=== PATIENT | male | born 1995 | race Caucasian/White ===

== ENCOUNTER 2020-08-05 07:43 | Outpatient (CLI) | payer OTHER, SELFPAY | END 2020-08-05 07:44 | disposition home or self-care (01) | PROVIDERS: PCP Family Medicine; Visit Provider Family Medicine | DX: Z01.10 Encounter for examination of ears and hearing without abnormal findings (principal) | CPT/HCPCS: 92552; 92556; 92567 ==

== ENCOUNTER 2021-08-08 08:47 | Outpatient (CLI) | payer OTHER, SELFPAY | END 2021-08-08 08:48 | disposition home or self-care (01) | LOC: ANHAUDIO 08:48 | PROVIDERS: PCP Family Medicine; Visit Provider Family Medicine | DX: Z01.10 Encounter for examination of ears and hearing without abnormal findings (principal) | CPT/HCPCS: 92552; 92556; 92567 ==

== ENCOUNTER 2022-08-17 09:40 | Outpatient (CLI) | payer MEDICARE, MEDICAID, SELFPAY | END 2022-08-17 09:41 | disposition home or self-care (01) | LOC: ANHAUDIO 09:42 | PROVIDERS: PCP Family Medicine; Visit Provider Family Medicine | DX: Z01.10 Encounter for examination of ears and hearing without abnormal findings (principal) | CPT/HCPCS: 99199 ==

== ENCOUNTER 2022-09-12 10:01 | Outpatient (CLI) | payer MEDICARE, MEDICAID, SELFPAY | END 2022-09-12 10:02 | disposition home or self-care (01) | LOC: ANHAUDIO 10:02 | PROVIDERS: PCP Family Medicine; Visit Provider Family Medicine | DX: Z01.10 Encounter for examination of ears and hearing without abnormal findings (principal) | CPT/HCPCS: 92552; 92556; 92567 ==

== ENCOUNTER 2023-09-13 08:29 | Outpatient (CLI) | payer MEDICARE, MEDICAID, SELFPAY | END 2023-09-13 08:30 | disposition home or self-care (01) | LOC: ANHAUDIO 08:30 | PROVIDERS: PCP Family Medicine; Visit Provider Family Medicine | DX: Z01.10 Encounter for examination of ears and hearing without abnormal findings (principal) | CPT/HCPCS: 92552; 92556; 92567 ==

== ENCOUNTER 2024-09-16 08:52 | Outpatient (CLI) | payer MEDICARE, MEDICAID, SELFPAY ==
--- OUTSIDE RECORDS SUMMARY | 2024-09-16 09:15 | XMS_ITS ---
Author Organization Unknown Address [address] [place] [address] [phone] Phone Care Team Providers Care Silk Soaker Name Role Phone AUDELIA Frey Attending Unavailable Immunization Immunization Date Status Additional Notes Code Code System OPV 1997 Completed 02 CVX OPV 1997 Completed 02 CVX OPV 06/29/1998 Completed 02 CVX OPV 07/04/2001 Completed 02 CVX MMR 06/29/1998 Completed 03 CVX MMR 02/27/2001 Completed 03 CVX Hep B, adolescent or pediatric 1997 Completed 08 CVX Hep B, adolescent or pediatric 1997 Completed 08 CVX Hep B, adolescent or pediatric 01/11/1998 Completed 08 CVX Hib, unspecified formulation 1997 Completed 17 CVX Hib, unspecified formulation 01/11/1998 Completed 17 CVX Hib, unspecified formulation 06/29/1998 Completed 17 CVX DTaP 1997 Completed 20 CVX DTaP 1997 Completed 20 CVX DTaP 01/11/1998 Completed 20 CVX DTaP 10/04/1998 Completed 20 CVX DTaP 07/04/2001 Completed 20 CVX varicella 06/29/1998 Completed 21 CVX varicella 08/19/2006 Completed 21 CVX Hep A, pediatric, unspecifie d formulation 07/06/1999 Completed 31 CVX Hep A, pediatric, unspecifie d formulation 02/27/2001 Completed 31 CVX meningococcal MCV4P 02/09/2009 Completed 114 CVX meningococcal MCV4P 10/29/2014 Completed 114 CVX Tdap 02/09/2009 Completed 115 CVX Tdap 09/28/2011 Completed 115 CVX Influenza, split virus, trivalent, PF 04/11/2012 Completed 140 CVX Influenza, split virus, trivalent, preservative 02/20/2024 Completed 141 CVX Influenza, split virus, quadrivalent, preservative 02/21/2017 Completed 158 C VX Influenza, split virus, quadrivalent, preservative 02/27/2018 Completed 158 C VX Influenza, split virus, quadrivalent, preservative 02/26/2019 Completed 158 C VX Influenza, split virus, quadrivalent, preservative 02/23/2021 Completed 158 C VX Influenza, split virus, quadrivalent, preservative 02/15/2022 Completed 158 C VX Influenza, split virus, quadrivalent, preservative 02/14/2023 Completed 158 C VX COVID-19, mRNA, LNP-S, PF, 3 0 mcg/0.3 mL dose 07/01/2020 Completed 208 CVX COVID-19, mRNA, LNP-S, PF, 3 0 mcg/0.3 mL dose 07/22/2020 Completed 208 CVX COVID-19, mRNA, LNP-S, PF, 3 0 mcg/0.3 mL dose 06/22/2021 Completed 208 CVX COVID-19, mRNA, LNP-S, bivalent, PF, 30 mcg/0.3 mL dose 08/01/2022 Completed 300 CVX COVID-19, mRNA, LNP-S, PF, tania-sucrose, 30 mcg/0.3 mL 08/06/2023 Completed 309 CVX Results HIV 4th GEN Ab 1&2 p24 Ag in -house - Collect Date/Time: 09/25/2023 07:07 [facility] ID: [id number] [place] [address], [phone] LOINC: 58221-9 Test Value Unit Reference Range Code Code System Flag HIV-1 Ab NEGATIVE NORMAL: NON REACTIVE/NE HIV-2 Ab NEGATIVE HIV-p24 Ag NEGATIVE SEND TO IF? NO REFLEX? NO 5778-6 LOINC HEPATITIS C AB (HCV Ab) - Co llect Date/Time: 09/25/2023 07:07 [facility] ID: [id number] [place] [address], [phone] LOINC: 51611-7 Test Value Unit Reference Range Code Code System Flag Hep C Virus Ab Non Reactive Non Reactive 39478-9 LOINC SEND TO [facility]? NO Social History Type Status Start Date End Date Code Code Syst em Smoking History Never smoker (Never Smoked) [id number] SNOMED CT Sex Male Hospital Discharge Instructions Should you have any questions prior to discharge, please contact a member of your healthcare team. If you have left the hospital and have any questions, please contact your primary care physician. Reason For Referral No Data Found Plan of Treatment No Data Found Encounters Encounter Diagnosis Start Date Code Code Sys tem Encounter for screening for human immunodeficiency virus [HIV] 09/25/2023 SNOMED-CT Personal Care Team Section Performer Name Performer Role Active Date Inactive Da te
--- OUTSIDE RECORDS SUMMARY | 2024-09-16 09:15 | XMS_ITS ---
Author Organization Unknown Address [address] [place] [address] [phone] Phone Care Team Providers Care Metal Tank Builder Name Role Phone AUDELIA Frey Attending Unavailable [...] mcg/0.3 mL 08/06/2023 Completed 309 CVX Results CBC W/O DIFF - Collect Date/ Time: 08/28/2023 07:24 [facility] ID: [id number] [address] [place], [place], [phone] LOINC: 65899-7 Test Value Unit Reference Range Code Code System Flag WBC 5.8 10^3uL L=4.8 H=10.8 RBC 5.86 10^6uL L=4.60 H=6.20 HEMOGLOBIN 16.2 g/dL L=14.0 H=18.0 718-7 LOINC HEMATOCRIT 46.1 VOL% L=42.0 H=52.0 4544-3 LOINC MCV 78.7 fL L=80.0 H=94.0 L MCH 27.6 pg L=27.0 H=32.0 MCHC 35.1 g/dL L=32.0 H=36.0 PLATELETS 238 10^3uL L=100 H=400 92667-7 LOINC RDW 12.8 % L=11.7 H=15.5 COMPREHENSIVE METABOLIC PANE L - Collect Date/Time: 08/28/2023 07:24 [facility] ID: [id number] [address] [place], [place], [phone] LOINC: 25663-9 Test Value Unit Reference Range Code Code System Flag FASTING YES BUN 15 mg/dL L=7 H=20 3094-0 LOINC CREATININE 1.10 mg/dL L=0.66 H=1.25 2160-0 LOINC GLUCOSE 102 mg/dL L=74 H=106 2345-7 LOINC SODIUM 139 mmol/L L=132 H=144 2951-2 LOINC POTASSIUM 4.2 mmol/L L=3.5 H=5.1 2823-3 LOINC CHLORIDE 101 mmol/L L=98 H=107 2075-0 LOINC CO2 31.0 mmol/L L=22.0 H=30.0 2028-9 LOINC H ANION GAP 11 L=10 H=20 29835-1 LOINC OSMOLALITY 289 mOs/kG L=280 H=296 83401-1 LOINC BUN/CREAT 13.6 3097-3 LOINC CALCIUM 9.5 mg/dL L=8.3 H=10.5 95951-1 LOINC AST 37 U/L L=15 H=46 1920-8 LOINC ALT 30 U/L L=9 H=72 1742-6 LOINC ALKALINE PHOS 64 U/L L=38 H=126 6768-6 LOINC TOTAL BILI 0.5 mg/dL L=0.2 H=1.3 1975-2 LOINC ALBUMIN 4.7 G/dL L=3.5 H=5.0 1751-7 LOINC TOTAL PROTEIN 7.6 g/L L=6.3 H=8.2 2885-2 LOINC A/G RATIO 1.6 21235-4 LOINC AGE 28 24211-6 LOINC eGFR NON-AFR 86 ml/min eGFR AFR AMER 104 ml/min TSH - Collect Date/Time: 07:24 [facility] ID: [id number] [address] [place] [address], [id number] LOINC: 60200-1 Test Value Unit Reference Range Code Code System Flag TSH. 0.595 uIU/L L=0.470 H=4.680 40288-7 LOINC LIPID PANEL - Collect Date/T sapphire: 08/28/2023 07:24 [facility] ID: [id number] [address] [place] [address], [id number] LOINC: 89554-9 Test Value Unit Reference Range Code Code System Flag FASTING YES CHOLESTEROL 158 mg/dL L=0 H=200 2093-3 LOINC TRIGLYCERIDE 186 mg/dL L=0 H=150 2571-8 LOINC H HDL 55 mg/dL L=40 H=60 2085-9 LOINC LDL 75 mg/dL 9-1 LOINC HGB A1C -GLYCOHEMOGLOBIN - C ollect Date/Time: 08/28/2023 07:24 [facility] ID: [id number] [address] [place] [address], [id number] LOINC: 4548-4 Test Value Unit Reference Range Code Code System Flag HGBA1C 5.0 % 4548-4 LOINC Social History Type Status Start Date End Date Code Code Syst em Smoking History Never smoker (Never Smoked) [id number] SNOMED CT Sex Male Hospital Discharge Instructions Should you have any questions prior to discharge, please contact a member of your healthcare team. If you have left the hospital and have any questions, please contact your primary care physician. Reason For Referral No Data Found Plan of Treatment No Data Found Encounters Encounter Diagnosis Start Date Code Code Sys tem Pervasive developmental disorder, unspecified 08/28/19 24 SNOMED-CT Personal Care Team Section Performer Name Performer Role Active Date Inactive Da te
--- OUTSIDE RECORDS SUMMARY | 2024-09-16 09:16 | XMS_ITS | Patient Health Record ---
Author Organization [facility] Address [address] [place] [address] Care Team Providers Care Patient Observation Assistant Name Role Phone Looker, Miya Beard Primary Care Provider Reason For Referral No Information Medications Medication SIG (Take, Route, Fr equency, Duration) Notes Start Date End Date Status risperiDONE ER Activ e OXcarbazepine Active Sertraline HCl Activ e Cetirizine HCl Activ e hydrOXYzine HCl Acti ve guanFACINE HCl Activ e Social History Tobacco Use: Social History Observation Description Date Details (start date - stop date) Unknown Tobacco Use/Smoking Question Answer Notes Are you a Uses tobacco in other forms Plan Of Treatment No Information Insurance Providers Payer Name Payer Address Payer Phone Subscriber Number Group Number Insured Name Patient Relationship to Insured Coverage Start Date Coverage End Date [employer]ANE Monte[employer] [address] [place] [phone] [id number] Vinny Parker Self - patient is the insured [facility] [address] [place] [address] [id number] Vinny Parker Self - patient is the insured Medical (General) History Medical History History ICD Code Sickle Cell Trait Behavior Disorder- ADHD,PDP Developmental disability
--- OUTSIDE RECORDS SUMMARY | 2024-09-16 09:16 | XMS_ITS ---
Author Organization Unknown Address [address] [place] [phone] Phone Care Team Providers Care Concrete Batcher Name Role Phone AUDELIA Frey Attending Unavailable [...] mL 08/06/2023 Completed 309 CVX Results CBC W/ DIFF - Collect Date/T sapphire: 09/01/2024 08:03 [facility] ID: [id number] [address] [place], [place], [phone] LOINC: 05161-4 Test Value Unit Reference Range Code Code System Flag WBC 4.6 10^3uL L=4.8 H=10.8 L RBC 5.90 10^6uL L=4.60 H=6.20 HEMOGLOBIN 16.0 g/dL L=14.0 H=18.0 718-7 LOINC HEMATOCRIT 45.7 VOL% L=42.0 H=52.0 4544-3 LOINC MCV 77.5 fL L=80.0 H=94.0 L MCH 27.1 pg L=27.0 H=32.0 MCHC 35.0 g/dL L=32.0 H=36.0 PLATELETS 262 10^3uL L=100 H=400 29527-9 LOINC RDW 13.1 % L=11.7 H=15.5 %GRAN 60.9 % L=40.0 H=70.0 19485-7 LOINC %LYMPH 26.9 % L=20.0 H=45.0 736-9 LOINC %MONO 8.7 % L=2.0 H=10.0 03262-0 LOINC %EOS 2.0 % L=0.0 H=6.0 713-8 LOINC %BASO 1.3 % L=0.0 H=3.0 706-2 LOINC #NEUT 2.8 10^3uL L=1.9 H=7.6 09151-4 LOINC #LYMPH 1.2 10^3uL L=0.9 H=4.9 92656-1 LOINC #MONO 0.4 10^3uL L=0.1 H=0.9 67945-2 LOINC #EOS 0.1 10^3uL L=0.0 H=0.6 712-0 LOINC #BASO 0.06 10^3uL L=0.00 H=0.10 45357-3 LOINC #IM GRANS 0.0 10^3uL L=0.0 H=7.0 06462-5 LOINC %IM GRANS 0.2 % L=0.0 H=5.0 50703-5 LOINC %NRB 0.0 L=0.0 H=0.2 76710-3 LOINC #NRB 0.000 L=0.000 H=0.012 32565-4 LOINC MANUAL DIFF NOT INDICATED RBC MORPH NOT INDICATED COMPREHENSIVE METABOLIC PANE L - Collect Date/Time: 09/01/2024 08:03 [facility] ID: [id number] [address] [place], [place], [phone] LOINC: 02760-6 Test Value Unit Reference Range Code Code System Flag FASTING YES BUN 12 mg/dL L=7 H=20 3094-0 LOINC CREATININE 0.90 mg/dL L=0.66 H=1.25 2160-0 LOINC GLUCOSE 94 mg/dL L=74 H=106 2345-7 LOINC SODIUM 137 mmol/L L=132 H=144 2951-2 LOINC POTASSIUM 4.5 mmol/L L=3.5 H=5.1 2823-3 LOINC CHLORIDE 104 mmol/L L=98 H=107 2075-0 LOINC CO2 25.0 mmol/L L=22.0 H=30.0 2028-9 LOINC ANION GAP 13 L=10 H=20 44826-7 LOINC OSMOLALITY 284 mOs/kG L=280 H=296 20112-7 LOINC BUN/CREAT 13.3 3097-3 LOINC CALCIUM 10.0 mg/dL L=8.3 H=10.5 52118-9 LOINC AST 27 U/L L=15 H=46 1920-8 LOINC ALT 22 U/L L=9 H=72 1742-6 LOINC ALKALINE PHOS 64 U/L L=38 H=126 6768-6 LOINC TOTAL BILI 0.6 mg/dL L=0.2 H=1.3 1975-2 LOINC ALBUMIN 4.7 G/dL L=3.5 H=5.0 1751-7 LOINC TOTAL PROTEIN 7.8 g/L L=6.3 H=8.2 2885-2 LOINC A/G RATIO 1.5 97817-2 LOINC AGE 29 32045-5 LOINC eGFR NON-AFR 108 ml/min eGFR AFR AMER 131 ml/min Social History Type Status Start Date End Date Code Code Syst em Smoking History Never smoker (Never Smoked) [id number] SNOMED CT Sex Male Hospital Discharge Instructions Should you have any questions prior to discharge, please contact a member of your healthcare team. If you have left the hospital and have any questions, please contact your primary care physician. 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
--- OUTSIDE RECORDS SUMMARY | 2024-09-16 09:16 | XMS_ITS ---
Author Organization Unknown Address [address] [place] [phone] Phone Care Team Providers Care Corporate Meeting Planner Name Role Phone AUDELIA Frey Attending Unavailable [...] mcg/0.3 mL 08/06/2023 Completed 309 CVX Results LIPID PANEL - Collect Date/T sapphire: 03/04/2024 06:58 [facility] ID: [id number] [place], [place], [phone] [facility]: 45906-1 Test Value Unit Reference Range Code Code System Flag FASTING YES CHOLESTEROL 153 mg/dL L=0 H=200 3-3 LOINC TRIGLYCERIDE 87 mg/dL L=0 H=150 1-8 LOINC HDL 45 mg/dL L=40 H=60 2084-9 LOINC LDL 71 mg/dL 2088- [facility] COMPREHENSIVE METABOLIC PANE L - Collect Date/Time: 03/04/2024 06:58 [facility] ID: [id number] [place], [place], [phone] LOINC: 25840-8 Test Value Unit Reference Range Code Code System Flag FASTING YES BUN 17 mg/dL L=7 H=20 3094-0 LOINC CREATININE 1.10 mg/dL L=0.66 H=1.25 2160-0 LOINC GLUCOSE 89 mg/dL L=74 H=106 2345-7 LOINC SODIUM 138 mmol/L L=132 H=144 2951-2 LOINC POTASSIUM 4.6 mmol/L L=3.5 H=5.1 2823-3 LOINC CHLORIDE 99 mmol/L L=98 H=107 2075-0 LOINC CO2 31.0 mmol/L L=22.0 H=30.0 2028-9 LOINC H ANION GAP 13 L=10 H=20 50278-6 LOINC OSMOLALITY 287 mOs/kG L=280 H=296 29859-5 LOINC BUN/CREAT 15.5 3097-3 LOINC CALCIUM 9.8 mg/dL L=8.3 H=10.5 76681-3 LOINC AST 26 U/L L=15 H=46 1920-8 LOINC ALT 16 U/L L=9 H=72 1742-6 LOINC ALKALINE PHOS 64 U/L L=38 H=126 6768-6 LOINC TOTAL BILI 0.6 mg/dL L=0.2 H=1.3 1975-2 LOINC ALBUMIN 4.5 G/dL L=3.5 H=5.0 1751-7 LOINC TOTAL PROTEIN 7.0 g/L L=6.3 H=8.2 2885-2 LOINC A/G RATIO 1.8 21570-6 LOINC AGE 28 41813-3 LOINC eGFR NON-AFR 86 ml/min eGFR AFR AMER 104 ml/min TSH - Collect Date/Time: 06:58 [facility] ID: [id number] [place], [place], [phone] LOINC: 11611-0 Test Value Unit Reference Range Code Code System Flag TSH. 0.934 uIU/L L=0.470 H=4.680 45729-2 LOINC HGB A1C -GLYCOHEMOGLOBIN - C ollect Date/Time: 03/04/2024 06:58 [facility] ID: [id number] [address] [place], [place], [phone] LOINC: 4548-4 Test Value Unit Reference Range Code Code System Flag HGBA1C 5.0 % 4548-4 LOINC CBC W/ DIFF - Collect Date/T sapphire: 03/04/2024 06:58 [facility] ID: [id number] [address] [place], [place], [id number] LOINC: 31517-8 Test Value Unit Reference Range Code Code System Flag WBC 5.1 10^3uL L=4.8 H=10.8 RBC 5.79 10^6uL L=4.60 H=6.20 HEMOGLOBIN 16.2 g/dL L=14.0 H=18.0 718-7 LOINC HEMATOCRIT 46.0 VOL% L=42.0 H=52.0 4544-3 LOINC MCV 79.4 fL L=80.0 H=94.0 L MCH 28.0 pg L=27.0 H=32.0 MCHC 35.2 g/dL L=32.0 H=36.0 PLATELETS 231 10^3uL L=100 H=400 17523-9 LOINC RDW 12.9 % L=11.7 H=15.5 %GRAN 61.1 % L=40.0 H=70.0 84866-2 LOINC %LYMPH 24.6 % L=20.0 H=45.0 736-9 LOINC %MONO 9.2 % L=2.0 H=10.0 72564-3 LOINC %EOS 3.7 % L=0.0 H=6.0 713-8 LOINC %BASO 1.2 % L=0.0 H=3.0 706-2 LOINC #NEUT 3.1 10^3uL L=1.9 H=7.6 11756-3 LOINC #LYMPH 1.3 10^3uL L=0.9 H=4.9 40489-0 LOINC #MONO 0.5 10^3uL L=0.1 H=0.9 19536-5 LOINC #EOS 0.2 10^3uL L=0.0 H=0.6 712-0 LOINC #BASO 0.06 10^3uL L=0.00 H=0.10 38918-5 LOINC #IM GRANS 0.0 10^3uL L=0.0 H=7.0 11536-6 LOINC %IM GRANS 0.2 % L=0.0 H=5.0 61209-0 LOINC %NRB 0.0 L=0.0 H=0.2 75983-9 LOINC #NRB 0.000 L=0.000 H=0.012 93583-0 LOINC MANUAL DIFF NOT INDICATED RBC MORPH NOT INDICATED Social History Type Status Start Date End Date Code Code Syst em Smoking History Never smoker (Never Smoked) [id number] SNOMED CT Sex Male Hospital Discharge Instructions Should you have any questions prior to discharge, please contact a member of your healthcare team. If you have left the hospital and have any questions, please contact your primary care physician. Reason For Referral No Data Found Plan of Treatment No Data Found Encounters Encounter Diagnosis Start Date Code Code Sys tem Other assisted (current) drug therapy 03/04/2024 SNOMED-CT Personal Care Team Section Performer Name Performer Role Active Date Inactive Da gregory
== END 2024-09-16 08:53 | disposition home or self-care (01) ==
LOC: ANHAUDIO 08:53
PROVIDERS: PCP Family Medicine; Visit Provider Family Medicine
DX: Z01.10 Encounter for examination of ears and hearing without abnormal findings (principal)
CPT/HCPCS: 92557; 92567